=== PATIENT | male | born 1940 | race Caucasian/White ===

== ENCOUNTER 2022-02-21 04:29 | Emergency (ER) | payer OTHER ==
[2022-02-21 04:58] LABS: #Eosinphils 0.1 10x3/uL (0.0-0.5); #Monocytes 0.3 10x3/uL (0.0-1.1); #Neutrophils 5.2 10x3/uL (1.5-8.4); %Basophils 0.1 % (0.0-2.0); %Eosinophils 1.3 % (0.0-6.0); %Lymphocytes 18.4 % (18.0-47.0); %Monocytes 4.7 % (0.0-10.0); %Neutrophils 74.9 % (40.0-75.0); Hemoglobin 11.4 g/dL (13.5-17.5); Mean Corpuscular HGB CONC 34.2 g/dL (32.0-36.0); Mean Corpuscular Hemoglobin 30.2 pg (27.0-33.0); Mean Corpuscular Volume 88.3 fl (81.2-95.1); Mean Platelet Volume 10.2 fl (7.4-10.4); Platelet Count 164 10x3/uL (150-450); RBC Distribution Width 14.1 % (11.5-14.5); Red Blood Cell (RBC) Count 3.77 10x6/uL (4.32-5.72)
[2022-02-21 05:24] LABS: ALT (SGPT) 29 U/L (8-55); AST (SGOT) 30 U/L (5-34); Albumin 3.4 g/dL (3.4-4.8); Alkaline Phosphatase 62 U/L (40-110); Anion Gap 13 mmol/L (10-20); BUN (Urea Nitrogen) 15 mg/dL (8.4-25.7); Bilirubin, Total 0.9 mg/dL (0.2-1.2); Calc. Creatinine Clearance 0 mL/min (70-130); Calcium 8.8 mg/dL (7.8-10.44); Carbon Dioxide 25 mmol/L (23-31); Chloride 104 mmol/L (98-107); Estimated GFR 82; Globulin 2.4 g/dL (2.4-3.5); Glucose 170 mg/dL (83-110); Potassium 3.3 mmol/L (3.5-5.1); Protein, Total 5.8 g/dL (5.8-8.1); Sodium 139 mmol/L (136-145)
[2022-02-21 06:49] LABS: SARS-CoV-2 NAA Rapid Test Not Detected (NotDetected)
== END 2022-02-21 09:40 ==
LOC: CSHERS 04:29 → EEVIPCON 04:29 → CSHERS 09:40
DX: S06.9X9A Unspecified intracranial injury with loss of consciousness of unspecified duration, initial encounter (principal); R55 Syncope and collapse; E87.6 Hypokalemia; R00.1 Bradycardia, unspecified; I44.0 Atrioventricular block, first degree; I10 Essential (primary) hypertension; I25.10 Atherosclerotic heart disease of native coronary artery without angina pectoris; K21.9 Gastro-esophageal reflux disease without esophagitis; M19.90 Unspecified osteoarthritis, unspecified site; W18.30XA Fall on same level, unspecified, initial encounter; Y92.149 Unspecified place in prison as the place of occurrence of the external cause; Z20.822 Contact with and (suspected) exposure to COVID-19; Z79.82 Long term (current) use of aspirin; Z79.899 Other long term (current) drug therapy
CPT/HCPCS: 70450; 72125; 80053; 84484; 85025; 93005; U0002